=== PATIENT | female | born 1950 | race African-American/Black ===

== ENCOUNTER 2016-06-22 13:15 | Outpatient (CLI) | payer MEDICARE ==
[2016-06-22 13:32] LABS: #Basophils 0.1 thou/uL (0.0-0.2); #Eosinphils 0.1 thou/uL (0.0-0.7); #Lymphocytes 1.3 thou/uL (1.20-3.40); #Monocytes 0.3 thou/uL (0.11-0.59); #Neutrophils 3.6 thou/uL (1.40-6.50); %Basophils 1.5 % (0.0-1.0); %Eosinophils 1.8 % (0.0-10.0); %Monocytes 6.3 % (0.0-10.0); Hematocrit 42.7 % (36.0-47.0); Mean Platelet Volume 6.4 fL (7.4-10.4); Red Blood Cell (RBC) Count 4.52 mill/uL (4.20-5.40); White Blood Cell (WBC) Count 5.4 thou/uL (4.8-10.8)
[2016-06-22 13:38] LABS: ALT (SGPT) 27 U/L (0-55); AST (SGOT) 18 U/L (5-34); Alkaline Phosphatase 64 U/L (40-150); Anion Gap 12 mmol/L (10-20); BUN (Urea Nitrogen) 11 mg/dL (9.8-20.1); Bilirubin, Total 0.5 mg/dL (0.2-1.2); Calc. Creatinine Clearance 0 mL/min (70-130); Calcium 9.5 mg/dL (7.8-10.44); Carbon Dioxide 28 mmol/L (23-31); Chloride 105 mmol/L (98-107); Estimated GFR-MDRD 80; Globulin 2.9 g/dL (2.4-3.5); LDL Cholesterol, Calculated 92 mg/dL; Protein, Total 6.9 g/dL (5.8-8.1)
== END 2016-06-22 13:16 | disposition home or self-care (01) ==
LOC: HPCALD 13:15
PROVIDERS: ATTEND Family Medicine
DX: E78.00 Pure hypercholesterolemia, unspecified (principal); M85.80 Other specified disorders of bone density and structure, unspecified site; S46.911D Strain of unspecified muscle, fascia and tendon at shoulder and upper arm level, right arm, subsequent encounter
CPT/HCPCS: 36415; 80053; 80061; 82306; 84443; 85025

== ENCOUNTER 2018-02-05 08:47 | Outpatient (CLI) | payer MEDICARE ==
--- NOTE | 2018-02-05 20:29 | ULT ---
NONVASCULAR ULTRASOUND OF THE LEFT AXILLA 02/05/18 Survey images of the area of concern around the left axilla were provided. No discrete masses, fluid collections, or focal pathology was appreciated. IMPRESSION: No significant findings. POS: HOME
== END 2018-02-05 08:48 | disposition home or self-care (01) ==
LOC: BURULT 08:47
PROVIDERS: ATTEND Family Medicine
DX: M79.622 Pain in left upper arm (principal)
CPT/HCPCS: 76882